=== PATIENT | female | born 1940 | race Caucasian/White ===

== ENCOUNTER → 2023-06-17 | Outpatient (CLI) | payer MEDICARE ==
--- NOTE | 2023-06-17 19:52 | BD ---
EXAMINATION TYPE: Axial Bone Density DATE OF EXAM: 06/17/2023 CLINICAL HISTORY: 83 years old Female. ICD-10 CODE: Z12.31 screening mammogram,M81.0 Height: 64.2 Weight: 152 FRAX RISK QUESTIONS: Glucocorticoids (More than 3mos): yes (Ex: prednisone, prednisolone, methylprednisolone, dexamethasone, and hydrocortisone). History of Fracture in Adulthood: yes RISK FACTORS HISTORY OF: hx of right wrist as an adult History of Wrist Fracture: yes, right as an adult Postmenopausal woman: yes, at age 51 Hyperparathyroidism: no Adrenal Insufficiency: no MEDICATIONS: Prednisone or other steroids: yes, for PMR polymyalgia rheumatica, for about 7 yrs Additional Medications: bp meds, statin for cholesterol, hx of radiation treatments x2 cycles, centru m silver, Additional History: osteoporosis, hx of bilat breast cancer 20 yrs apart, 47 and 67 hx of radiation w ith both, EXAM MEASUREMENTS: Bone mineral densitometry was performed using the [employer] System. Bone mineral density as measured about the Lumbar spine is: ----- L1-L4(G/cm2): 1.119 T Score Values are as follows: ----- L1: -1.1 ----- L2: -1.1 ----- L3: -0.2 ----- L4: -0.1 ----- L1-L4: -0.5 Z Score Values are as follows: ----- L1: 0.7 ----- L2: 0.7 ----- L3: 1.5 ----- L4: 1.7 ----- L1-L4: 1.2 Bone mineral density is her first dexa at [facility]. Bone mineral density about the R hip (g/cm2): 0.713 Bone mineral density about the L hip (g/cm2): 0.779 T Score values are as follows: -----R Neck: -2.4 -----L Neck: -2.5 -----R Total: -2.3 -----L Total: -1.8 Z Score values are as follows: -----R Neck: -0.2 -----L Neck: -0.3 -----R Total: -0.3 -----L Total: 0.2 Bone mineral density it is her first study at [facility] for bone density. FRAX%s: The graph provided illustrates a 38.1% chance for a major osteoporotic fx and a 15.2% chance for the hips probability for fx in 10 years time. IMPRESSION: Osteoporosis (T Score less than -2.5). There is increased fracture risk and therapy is usually indicated based on age. Re-Screen 1-2 years. NOTE: T-SCORE=SD OF THE YOUNG ADULT MEAN.
--- NOTE | 2023-06-19 16:26 | MM ---
Reason for Exam: Screening (asymptomatic). Last mammogram was performed 2 year(s) and 0 month(s) ago. Patient History: Menarche at age 14. Patient has no children. Postmenopausal. Breast cancer, left, age 46. Breast cancer, right, age 66. Previous chest radiation therapy at age 47. 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 1986, Malignant Lumpectomy on the left side. Prior Study Comparison: 12/27/2018 Bilateral Screening Mammogram, [facility]. 03/08/2020 Bilateral Screening Mammogram, [facility]. 07/10/2021 Bilateral Screening Mammogram, [facility]. Tissue Density: The breast tissue is heterogeneously dense. This may lower the sensitivity of mammography. Findings: Analyzed By CAD. Postsurgical and posttreatment change both sides. Slight increasing benign dystrophic calcifications on the left. There is no suspicious group of microcalcifications or new suspicious mass in either breast. Overall Assessment: Benign, BI-RAD 2 Management: Screening Mammogram of both breasts in 1 year. . Patient should continue monthly self-breast exams. A clinical breast exam by your physician is recommended on an annual basis. This exam should not preclude additional follow-up of suspicious palpable abnormalities. Electronically signed and approved by: Thierno Sheldon M.D. Radiologist
== END | disposition home or self-care (01) ==
LOC: RADBDWWP 12:58
PROVIDERS: ATTEND Internal Medicine Geriatric Medicine
DX: Z12.31 Encounter for screening mammogram for malignant neoplasm of breast (principal); M85.89 Other specified disorders of bone density and structure, multiple sites; M81.0 Age-related osteoporosis without current pathological fracture; Z78.0 Asymptomatic menopausal state; Z85.3 Personal history of malignant neoplasm of breast
CPT/HCPCS: 77063; 77067; 77080